=== PATIENT | male | born 1980 | race Caucasian/White ===

== ENCOUNTER 2025-11-21 21:47 | Emergency (ER) | payer BC, SELFPAY ==
[2025-11-21 21:57] VITALS: BP 131/89; PULSE 93; RESP 18; TEMP 37.2; O2SAT 96; BMI 27.4
--- NOTE | 2025-11-21 21:58 | CRLHL7_ITS ---
For Patients: As a result of the Century Cures Act, medical imaging exams and procedure reports are released immediately into your electronic medical record. You may view this report before your referring provider. If you have questions, please contact your health care provider. Indication: Trauma. Technique: Left shoulder, 3 views. Comparison: None. Findings/Impression: Bones/joints spaces: Elevation of the clavicular head suggestive acromioclavicular joint separation. No shoulder dislocation. No displaced fractures or bone lesions. Soft tissues: Unremarkable. Dictated by Reggie Ruiz MD @ 11/21/2025 11:41:39 PM (Electronically Signed)
--- NOTE | 2025-11-21 23:08 | ED.GENADULT ---
HPI - General Adult General Chief complaint: Shoulder Injury/Pain Stated complaint: L shoulder injury Time Seen by Provider: 11/21/25 23:08 History of Present Illness HPI narrative: Patient fell and injured left shoulder while playing soccer today. Patient bandaged and splinted arm. No numbness and tingling in arm. Able to move fingers and hand. 45-year-old man presenting to emergency department With concern of left shoulder area pain. Apparently following this left shoulder all playing soccer today. He is not having any radiating symptoms just a good deal of pain in the left upper shoulder. Did not hit his head. No neck or back pain. No prior injury here. Related Data Home Medications ?Medication ?Instructions ?Recorded ?Confirmed No Known Home Medications 11/21/25 11/21/25 Allergies Allergy/AdvReac Type Severity Reaction Status Date / Time No Known Drug Allergies Allergy Verified 11/21/25 22:04 Review of Systems Status of ROS: Reports: 6 or more systems reviewed and unremarkable except as noted in History and below PFSH PFS Social History Smoking Status: Never smoker Do you use any of these nicotine containing products: None How often do you have a drink containing alcohol: monthly or less How often do you have six or more drinks on one occasion: Never AUDIT-C Alcohol total score: 1 Non-prescribed substance use: denies use service: No Exam Narrative: Exam Narrative: Here with friends. Wearing an arm sling. Head is atraumatic. Neck is nontender. Back nontender. Tender primarily over the supraspinatus musculature. Swelling and erythema here as well apparent. AC joint area tenderness. intact sensation and well-perfused peripherally. Nontender over the clavicle otherwise. Clearly uncomfortable but breathing easily. Const: Vital Signs, click to edit/add: Vital Signs - 24 hr 11/21/25 21:57 Temperature 98.9 F Pulse Rate [Pulse Oximeter] 93 Respiratory Rate 18 Blood Pressure [Ri ght Upper Arm] 131/89 Pulse Oximetry 96 Oxygen Delivery Me thod Room Air Documenting provider has reviewed patient's vital signs: yes Course Vital Signs Vital signs: Initial Vital Signs Temperature 98.9 F 11/21/25 21:57 Temperature Source Temporal Artery Scan 11/21/25 21:57 Pulse Rate 93 11/21/25 21:57 Respiratory Rate 18 12/27/25 21:57 Blood Pressure 131/89 11/21/25 21:57 Blood Pressure Mean 103 11/21/25 21:57 Pulse Oximetry 96 11/21/25 21:57 Oxygen Delivery Method Room Air 11/21/25 21:57 Vital Signs Temperature 98.9 F 11/21/25 21:57 Pulse Rate 93 11/21/25 21:57 Respiratory Rate 18 11/21/25 21:57 Blood Pressure 131/89 11/21/25 21:57 Pulse Oximetry 96 11/21/25 21:57 Oxygen Delivery Method Room Air 11/21/25 21:57 Temperature 98.9 F 11/21/25 21:57 Pulse Rate 93 11/21/25 21:57 Respiratory Rate 18 11/21/25 21:57 Blood Pressure 131/89 11/21/25 21:57 Pulse Oximetry 96 11/21/25 21:57 Oxygen Delivery Method Room Air 11/21/25 21:57 Medications Administered Medications: Discontinued Medications Generic Name Dose Route Start Last Admin Trade Name Luis Felipe PRN Reason Stop Dose Admin Ibuprofen 800 mg 11/21/25 23:17 11/21/25 23:44 Ibuprofen 400 Mg Tablet PO 11/21/25 23:18 800 mg ONCE ONE Administration Medical Decision Making MDM Narrative Medical decision making narrative: acknowledges pain but not feel that he needs anything for pain, ultimately accepting some ibuprofen. I would suspect AC joint /shoulder separation here although unusual amount of swelling into the trapezius musculature. Doubtful humeral neck or head injury. Shoulder does not appear to be dislocated. independently reviewed by me three-view x-ray of the left shoulder shows rather wide AC joint with elevation of the distal clavicle. Shoulders properly located otherwise. I think there is shoulder separation/ AC joint separation. Discussed findings with Mr. Vasquez. See patient discharge plan for further discussion Can take up to 800 mg of ibuprofen or up to 1000 mg of acetaminophen per dose. These can be combined as well. The ibuprofen can be dosed every 6 hours not to exceed 3200 mg in 24 hours and the acetaminophen can be dosed every 4 hours however not to exceed 4000 mg of acetaminophen in 24 hours. Alternative to the ibuprofen could be up to 500 mg of naproxen twice daily. Consider getting a screw top ice bag. Can purchase at [employer]. Fill with ice and water. I would ice your shoulder at least 3 times daily over the next few days. Wear the arm sling for comfort over this coming week and probably the next. See handout on shoulder separation rehabilitation. And take this with you to follow-up in clinic. You can follow-up with orthopedics at phone number [phone] or with sports medicine <del>a</del> <del>few</del> <del>no</del> <del>one</del> or with primary care with an interest in orthopedics. You can also go to an outside orthopedic group. We have put a copy of your images on this disc for follow-up appointments if necessary. I would anticipate a better exam on follow-up once some of discomfort has lessened. You can also get more specific work restrictions written at this follow-up appointment. Without insurance you might also qualify for [facility]. Be sure to discuss your lack of insurance with our bowling or skating front desk clerk to receive appropriate paperwork. Discharge Plan Discharge Clinical Impression: Shoulder separation Patient Disposition: Home w/ Parent or Adult Condition: Stable Additional Instructions: Can take up to 800 mg of ibuprofen or up to 1000 mg of acetaminophen per dose. These can be combined as well. The ibuprofen can be dosed every 6 hours not to exceed 3200 mg in 24 hours and the acetaminophen can be dosed every 4 hours however not to exceed 4000 mg of acetaminophen in 24 hours. Alternative to the ibuprofen could be up to 500 mg of naproxen twice daily. Consider getting a screw top ice bag. Can purchase at [employer]. Fill with ice and water. I would ice your shoulder at least 3 times daily over the next few days. Wear the arm sling for comfort over this coming week and probably the next. See handout on shoulder separation rehabilitation. And take this with you to follow-up in clinic. You can follow-up with orthopedics at phone number [phone] or with sports medicine a few no one or with primary care with an interest in orthopedics. You can also go to an outside orthopedic group. We have put a copy of your images on this disc for follow-up appointments if necessary. I would anticipate a better exam on follow-up once some of discomfort has lessened. You can also get more specific work restrictions written at this follow-up appointment. Without insurance you might also qualify for [facility]. Be sure to discuss your lack of insurance with our bowling or skating front desk clerk to receive appropriate paperwork. Puede giancarlo hasta 800 mg de ibuprofeno o hasta 1000 mg de paracetamol por dosis. Tambi?n se pueden combinar. El ibuprofeno se puede giancarlo cada 6 horas, sin exceder los 3200 mg en 24 horas, y el paracetamol se puede giancarlo cada 4 horas, sin exceder los 4000 mg en 24 horas. Scotty alternativa al ibuprofeno, puede giancarlo hasta 500 mg de naproxeno dos veces al d?a. Considere comprar samy bolsa de hielo con tapa de rosca. Puede adquirirla en [facility]. Llene la bolsa con hielo y agua. Apl?quese hielo en el hombro al menos 3 veces al d?a jaclyn los pr?ximos d?as. Use el cabestrillo para mayor comodidad jaclyn esta semana y probablemente la siguiente. Consulte el folleto sobre rehabilitaci?n de la separaci?n del hombro. Ll?velo consigo a la mino de seguimiento en la cl?mickey. Puede programar samy mino de seguimiento con ortopedia llamando al [phone], con medicina deportiva o con field m?dico de cabecera si tiene inter?s en ortopedia. Tambi?n puede acudir a un low de ortopedia externo. Hemos incluido samy copia de benedicto im?genes en madai disco para las citas de seguimiento, si fuera necesario. Anticipo que el examen de seguimiento ser? mejor samy vez que disminuya la molestia. Tambi?n podr? obtener restricciones laborales m?s espec?ficas en esta mino de seguimiento. Si no tiene seguro m?dico, podr?a calificar para la cl?mickey [facility]. Aseg?rese de informar a la recepci?n sobre field falta de seguro para recibir la documentaci?n correspondiente. Prescriptions: No Action No Known Home Medications Follow Up/Referrals: Provider,Not a Local [Primary Care Provider, Family Practice] Stand Alone Forms: [facility] Instructions
[2025-11-21] MEDS: IBUPROFEN 400 MG TABLET 800 MG PO (23:44)
== END 2025-11-22 00:19 | disposition home or self-care (01) ==
PROVIDERS: Emergency Provider Family Medicine
DX: S43.005A Unspecified dislocation of left shoulder joint, initial encounter (principal); X58.XXXA Exposure to other specified factors, initial encounter; Y93.66 Activity, soccer
CPT/HCPCS: 73030; 99283; 99284; A9270